=== PATIENT | male | born 1965 | race Two or more races ===

== ENCOUNTER 2024-02-20 14:58 | Emergency (ER) | payer OTHER ==
[~2024-02-20] VITALS: Ht 185.4 cm; Wt 95.7 kg
[2024-02-20] MEDS: AZITHROMYCIN 250 MG TAB PO ONE (16:33)
[2024-02-20 16:45] VITALS: PULSE 82; RESP 20; O2SAT 98
[2024-02-20 17:22] LABS: COVID19 ANTIGEN SOFIA FIA NEGATIVE (NEGATIVE); Rapid Influenza A Negative (Negative); Rapid Influenza B Negative (Negative)
[2024-02-20] MEDS ORDERED: ACET500T58 PO (17:33)
[2024-02-20] MEDS ORDERED: AZIT500T66 PO (17:33)
[2024-02-20] MEDS ORDERED: BENZ100C97 PO (17:33)
[2024-02-20 17:49] VITALS: BP 122/76; PULSE 77; RESP 18; TEMP 99.2; O2SAT 94
== END 2024-02-20 17:54 | disposition home or self-care (01) ==
LOC: ER 14:58
DX: J18.9 Pneumonia, unspecified organism (principal); R42 Dizziness and giddiness
CPT/HCPCS: 36415; 71046; 87426; 87804